=== PATIENT | female | born 2000 | race American Indian/Alaskan Native ===

== ENCOUNTER → 2025-06-01 | Outpatient (CLI) | payer MEDICAID, OTHER, SELFPAY ==
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
== END | disposition home or self-care (01) ==
LOC: CDIM 12:52
PROVIDERS: PCP Nurse Practitioner Family; Referring Provider Nurse Practitioner Family; Visit Provider Nurse Practitioner Family
DX: M54.2 Cervicalgia (principal); M54.6 Pain in thoracic spine; S12.600S Unspecified displaced fracture of seventh cervical vertebra, sequela; S29.9XXS Unspecified injury of thorax, sequela; V89.2XXS Person injured in unspecified motor-vehicle accident, traffic, sequela
CPT/HCPCS: 72050; 72072

== ENCOUNTER 2025-09-09 16:03 | Emergency (ER) | payer MEDICAID, OTHER, SELFPAY ==
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
[2025-09-09 16:11] VITALS: BP 142/96; PULSE 98; RESP 18; TEMP 36.6; O2SAT 96; BMI 33.3
[2025-09-09] MEDS: IBUPROFEN TAB 400 MG TABLET 800 MG PO (16:32)
--- NOTE | 2025-09-09 17:03 | EDNOTE_ITS ---
Lower Extremity Injury RME/HPI General Chief Complaint: Extremity Injury, Lower Stated Complaint: Fall right knee pain Time Seen by Provider: 09/09/25 16:07 Arrival date/time: 09/09/25 16:03 25-year-old female presents to the emergency department complaints of injury to the right knee last night. Limitations: no limitations Related Data Previous Rx's ?Medication ?Instructions ?Recorded ibuprofen 800 mg tablet 800 mg PO TID PRN pain #30 t abs 09/09/25 Allergies Allergy/AdvReac Type Severity Reaction Status Date / Time No Known Drug Allergies Allergy Verified 09/09/25 16:06 Review of Systems Review of Systems Systems Reviewed: All systems reviewed, normal except as documented Constitutional Constitutional: Reports system reviewed and no additional complaints, except as documented, Denies fever(s) and Denies headache(s) Eyes Eyes: Reports system reviewed and no additional complaints, except as documented and Denies blurry vision ENT Ears, Nose, Mouth, and Throat: Reports system reviewed and no additional complaints, except as documented, Denies headache(s), Denies nasal congestion and Denies nasal discharge Cardiovascular Cardiovascular: Reports system reviewed and no additional complaints, except as documented, Denies chest pain and Denies dyspnea Respiratory Respiratory: Reports system reviewed and no additional complaints, except as documented, Denies chest congestion, Denies cough and Denies dyspnea Gastrointestinal Gastrointestinal: Reports system reviewed and no additional complaints, except as documented and Denies abdominal pain Musculoskeletal Musculoskeletal: Reports system reviewed and no additional complaints, except as documented, Reports arthralgias, Denies numbness, Reports stiffness, Denies tingling and Reports other (Right leg pain) Integumentary/Breasts Skin/Breast: Reports system reviewed and no additional complaints, except as documented and Denies rash Neurologic Neurologic: Reports system reviewed and no additional complaints, except as documented, Reports as per HPI, Denies headache(s), Denies numbness and Denies tingling Past Medical History Social History SMOKING STATUS: Never smoker ED Exam General Limitations: Present no limitations General appearance: Present alert and in no apparent distress Head Head exam: Present atraumatic Eye Eye exam: Present normal appearance, PERRL and EOMI ENT ENT exam: Present normal exam, normal oropharynx and mucous membranes moist Neck Neck exam: Present normal inspection, full ROM and trachea midline Chest Chest inspection: Present normal inspection and symmetric chest wall rise Respiratory Respiratory exam: Present normal lung sounds bilaterally Cardiovascular Cardiovascular exam: Present regular rate, normal rhythm and normal heart sounds Abdominal Exam Abdominal exam: Present soft and normal bowel sounds Extremities Exam Extremities exam: Present full ROM, tenderness, normal capillary refill and joint swelling (Hematoma right lower extremity) Back Exam Back exam: Present normal inspection and full ROM Neurological Exam Neurological exam: Present alert, oriented X3 and CN II-XII intact Psychiatric Psychiatric exam: Present normal affect and normal mood Skin Skin exam: Present warm, dry, intact and normal color Course Quality Measures none Orders Category Date Time Status XR knee RT 3V Stat Exams 09/09/25 16:09 Taken Ibuprofen Tab [Motrin Tab] Med 09/09/25 16:10 Discontinued 800 mg PO X1 ONE Vital Signs Vital signs: Vital Signs Temperature 97.8 F 09/09/25 16:11 Pulse Rate 98 09/09/25 16:11 Respiratory Rate 18 09/09/25 16:11 Blood Pressure 142/96 H 09/09/25 16:11 Pulse Oximetry (%) 96 09/09/25 16:11 Oxygen Delivery Method Room Air 09/09/25 16:11 O2 saturation 96% room air within normal limits Extremity Injury, Lower MDM Narrative MDM Narrative:: 25-year-old female presents to the emergency department complaints of injury to the right knee last night. Patient reports no other injuries On exam patient well-appearing patient does not appear ill or look toxic no acute distress Imaging of the right knee obtained no acute fracture dislocation noted Jerry wrap applied Patient discharged home in no distress to follow-up with primary care doctor in the next 24 to 48 hours and for any worsening symptoms to return to the ER immediately Patient data External records reviewed:: [facility] previous records Clinical information provided by:: patient Social determinants that could affect healthcare access:: none Patient has the following chronic illnesses:: None How is presenting disease/condition affected by chronic disease/condition?: no chronic disease Evaluation data The following diagnostics were reviewed and interpreted by me:: radiology exam(s) Lab and/or radiology exams considered but not ordered:: Radiology obtained Interpretation Summary: Reviewed by me Medications / Prescriptions Medications or Prescriptions considered but not ordered:: Given Medication administrations:: Medication Administration History Discontinued Medications Ibuprofen (Ibuprofen Tab 400 Mg Tablet) 800 mg PO X1 ONE Stop: 09/09/25 16:11 Last Admin: 09/09/25 16:32 Dose: 800 mg Documented By: ED Given Consultations Consultation(s) initiated? (list below): No Diagnosis Most likely diagnosis given after review of the tests above:: Hematoma right leg Admission Indicated Admission indicated?: not indicated Admission Request Was there a request for admission?: No Disposition Plan Disposition Plan: Discharge Discharge Attestation Discharge Attestation: The patient and all family members were given an opportunity to ask questions and understood the discharge instructions. Discharge instructions specifically effects, indications for sooner follow up or return to the emergency department, and the expected course of current diagnosis. Patient condition: Stable Discharge Plan Plan Patient Disposition: HOME (Self Care) Discharge Disposition comment: Stable Prescriptions/Referrals Prescriptions/Med Rec: New ibuprofen 800 mg tablet 800 mg PO TID PRN (Reason: pain) Qty: 30 0RF [facility] - 09/12/25 Problem List Clinical Impression: Contusion of knee, right Patient/Caregiver Discharge Instructions Education Materials: Bruises (Contusions) Additional Instructions: Please follow up with your primary care doctor in the next 24-48hrs for any worsening symptoms return here immediately Print Language: [place] Stand Alone Forms: Annamarie Award Info., Work/School Release, Patient Portal Info Letter JAYLA/RENÉ Supervising Physician REBECCA Supervising Physician: Dr. Saldivar
== END 2025-09-09 19:32 | disposition home or self-care (01) ==
PROVIDERS: Emergency Provider Emergency Medicine; PCP Nurse Practitioner Family
DX: S80.01XA Contusion of right knee, initial encounter (principal); X50.0XXA Overexertion from strenuous movement or load, initial encounter
CPT/HCPCS: 73562; 99282; A9270